=== PATIENT | female | born 1995 | race Caucasian/White ===

== ENCOUNTER 2022-05-16 10:16 | Outpatient (CLI) | payer OTHER, SELFPAY ==
[2022-05-17 12:21] LABS: Strep B DNA Probe POSITIVE (Negative)
== END 2022-05-16 10:17 | disposition home or self-care (01) ==
LOC: NFLDREF 10:16
PROVIDERS: PCP Physician Assistant Medical; Visit Provider Advanced Practice Midwife
DX: Z34.90 Encounter for supervision of normal pregnancy, unspecified, unspecified trimester (principal)
CPT/HCPCS: 87081; 87653

== ENCOUNTER 2022-06-15 07:52 | Inpatient (IN) | payer OTHER, SELFPAY ==
[2022-06-15] VITALS (34 sets, daily range): BP systolic 98–130; BP diastolic 52–75; PULSE 62–96; RESP 16; TEMP 36.7–36.9; O2SAT 92–100; BMI 29.8
[2022-06-15] MEDS: miSOPROStoL 25 MCG/0.25 TABLET VAGINAL ×2 (07:54→12:15)
--- NOTE | 2022-06-15 07:57 | W.PM.LDBA ---
Subjective History of Present Illness Date Seen: 06/15/22 Narrative: Patient is being admitted to Labor and Delivery for IOL post dates. She is a 27 year old at 40.6 weeks gestation. Her full history and physical was dictated by Gayle Valadez CNM on 05/24/2022. Please see this for details. On admission she is abdulkadir but denies feeling them. Her cervical exam is unchanged from the clinic over the past few weeks. Reviewed IOL options including Cytotec vaginally or buccally, cook catheter and Pitocin. Risks and benefits of each reviewed. She choose vaginal Cytotec. First dose placed by me. She is ok with subsequent doses being placed by staff educator. She plans an epidural for pain at some time. Denies questions at this time. O POSITIVE+ ? GBS positive 1.? Stopped Adderall w/ , but may need to go back on. back on Lexapro 2.? Hx of macrosomic infant, 9 lbs, no complications 3.? Risk of depression.? Did not have w/ first baby, mom in the last year.? Consider SSRI if needed. OB - H&P: Exam Constitutional: Constitutional: no acute distress Routine HEENT Exam: Head: Present normal inspection Eye: Present normal appearance ENT: Present normal exam Routine Neck Exam: Neck: Present full ROM Routine Respiratory Exam: Respiratory: Present CTA bilaterally Routine Cardiovascular Exam: Cardiovascular: RRR Routine Exam: Perineum Description: Normal Detailed Labor and Delivery Exam: Patient Gravid: yes Dilation (cm): 1 Effacement (%): 30 Cervix position: mid Consistency: medium Contraction frequency (min): 7 Tachysystole: No Contraction intensity: Mild (pt denies feeling contractions) Fetus (Single): Station: -3 Heart Rate Baseline: 135 Monitor Accelerations: Present Monitor Decelerations: None Forensic Science Technician Variability: Moderate (11-25) (6-25) Routine Extremities Exam: Extremities: Present full ROM Routine Back/Spine/Pelvis Exam: Back/Spine: full ROM Routine Neurological Exam: Present alert and oriented X3 Routine Psychiatric Exam: Present normal affect and normal thought process OB - Problem Based A/P Additional Plan (1) Supervision of Other Normal : Status: Acute Plan ASSESSMENT:? at 40.6 weeks gestation? GBS positive? Uncomplicated ? Postdates IOL? ?? PLAN:? 1. Antibiotic prophylaxis treatment per protocol? 2. Reviewed risks and benefits of IOL with Pitocin vs Cytotec (vaginal or buccal). Pt prefers vaginal Cytotec. Pitocin to follow if needed.? 3. Candidate for analgesia of choice. Planning epidural.? 4. Anticipate ? 5. IV placement per protocol as needed 6. External monitoring per unit policy? Delivery/Labor/Induction Plan Plan: induction Induction method: per misoprostol protocol
[2022-06-15 09:43] LABS: SARS PCR* Negative SARS-CoV-2 (Negative)
--- NOTE | 2022-06-15 17:14 | PM.OBPNL ---
Pain Control Date Seen: 06/15/22 Pain control: tolerating well Comments: Subjective: Tiffanie is coping WELL with labor pain/contractions. She is currently being supported by her and the nursing staff. She is getting more uncomfortable rating the contractions a 4/10 but states that they are still tolerable. Talking through contractions. Understands the current plan of care. Questions answered to her satisfaction. Reports concerns regarding: none. She would like to continue with position changes and distraction for comfort and pain management.?? ? Objective:? Vital signs stable, see nurse documentation? Abdomen: palpates mild at fundus with contractions? FHR: EEG INTERMITTENT monitoring as ordered, baseline 125 BPM with moderate variability, 15x15 accelerations present in the past hour, decelerations absent.? TOCO/observation: every 1.5-4 minutes? SVE: %/-3? Membranes: intact? ? Assessment:?? 27 at 40.6 gestation?? Patient is coping WELL with challenges of labor.?? Labor type: Induced, Early labor? Category 1 FHR pattern.?? Labor complicated by:none? ? Plan:?? Continue with routine intrapartum cares as ordered.?? Will hold the next dose of Cytotec due to increased number of contractions. Will reevaluate for another possible dose in 1-2 hours. Patient encouraged to include movement and position changes to promote physiologic labor and .?? LABOR ANALGESIA or nonpharmacologic comfort measures per patient preference. Patient does not plan for waterbirth? Anticipate vaginal .?? Contractions Monitor mode: External Contraction frequency: 3 (Q 1.5-4 min) Contraction pattern: Regular Contraction intensity: Mild (pt feeling contractions as tightening across her abdomen) Pelvic Exam Dilation (cm): 1 Effacement (%): 70 Station: -3 Fetus (Single) status: Category l Assessment and Plan Assessment: induction ongoing
[2022-06-15 20:55] LABS: Basophils Percent Auto 0.2 % (0.0-3.0); Eosinophils Percent Auto 0.7 % (0.0-7.0); Hematocrit 39.4 % (33.0-51.0); Hemoglobin* 13.9 gm/dL (12.0-16.0); Immature Granulocytes Abs Auto 0.03 K/uL (0.00-0.30); Lymphocytes Percent Auto 17.8 % (20-44); Mean Corpuscular HGB Conc 35 gm/dL (32-36); Mean Corpuscular Hemoglobin 31 pg (26-34); Mean Corpuscular Volume 88 fL (80-100); Monocytes Percent Auto 8.4 % (0.0-11.0); Neutrophils Percent Auto 72.7 % (42.0-72.0); Platelet Count* 227 K/uL (140-440); RDW Coefficient of Variation % 12.7 % (11.5-15.5); Red Blood Count 4.49 m/uL (4.00-5.20); White Blood Count* 12.12 K/uL (4.50-11.00)
[2022-06-15 20:57] LABS: Slide Review Reflex No
[2022-06-15] MEDS: LACTATED RINGERS 1000 ML 1,000 ML 1200 ML IV ×2 (21:30→22:22)
[2022-06-15] MEDS: AMPICILLIN 2 GM in 0.9 % SODIUM CHLORIDE Mini-bag 100 ML IVPB (21:31)
[2022-06-15] MEDS: fentaNYL 100 MCG/2 ML inj IVP (21:50)
[2022-06-15] MEDS: ROPIVACAINE 0.2% 100 ml 100 ML 12 MG EPIDURAL (21:57)
[2022-06-15] MEDS: LIDOCAINE 2% (PF) 5 ML VIAL EPIDURAL (21:58)
[2022-06-15] MEDS: ROPIVACAINE 0.2 % PF 10 ML INJ 20 MG EPIDURAL (22:09)
--- NOTE | 2022-06-15 22:18 | PM.ANBPRC ---
PFSH PFSH Surgical History (Updated 04/23/22 @ 10:45 by Jin Gastelum) History of arthroscopy of both knees History of lumpectomy Family History (Updated 04/10/22 @ 14:05 by Karen Kay) Maternal Grandfather Hyperlipidemia High blood pressure Maternal Grandmother Hyperlipidemia High blood pressure Paternal Grandfather Hyperlipidemia Paternal Grandmother Hyperlipidemia Mother High blood pressure Father Thyroid disease Other Prostate cancer Social History (Updated 04/10/22 @ 14:04 by Karen Kay) Narrative: Does not use illicit drugs Non-smoker Rarely consumes alcohol Smoking Status: Never smoker Meds Home Medications and Allergies Home Medications Medication Instructions Recorded Confirmed Type docosahexaenoic acid 200 mg mg PO 04/24/22 06/14/22 History capsule ( DHA) Allergies Allergy/AdvReac Type Severity Reaction Status Date / Time No Known Allergies Allergy Verified 06/15/22 07:29 Results Labs Labs: Laboratory Results - last 24 hr 06/15/22 06/15/22 06/15/22 08:18 20:41 20:41 WBC 12.12 H RBC 4.49 Hgb 13.9 Hct 39.4 MCV 88 MCH 31 MCHC 35 RDW Coeff of Rayo 12.7 Plt Count 227 Neut % (Auto) 72.7 H Lymph % (Auto) 17.8 L [place] % (Auto) 8.4 Eos % (Auto) 0.7 Baso % (Auto) 0.2 Neut # (Auto) 8.80 H Lymph # (Auto) 2.20 [place] # (Auto) 1.00 H Eos # (Auto) 0.10 Baso # (Auto) 0.00 Abs Immat Gran (auto) 0.03 SARS-CoV-2 (PCR) Negative SARS-CoV-2 Blood Type O Positive Antibody Screen NEGATIVE Vital Signs Vital Signs: Last Vital Signs Temp 98.1 F 06/15/22 19:30 Pulse 77 06/15/22 21:57 Resp 16 06/15/22 16:32 BP 128/75 06/15/22 21:57 Pulse Ox 97 06/15/22 22:09 Weight: 94.347 kg Height: 177.8 cm Anesthesia Procedures Epidural Insertion Patient Location: OB Start Time: 21:30 Stop Time: 22:19 Start Date: 06/15/22 Stop Date: 06/15/22 Reason for Block: procedure for pain Patient Position: sitting Performed By: Malcolm Bauer Preanesthetic Checklist: IV checked, risks and benefits discussed, surgical consent, monitors and equipment checked, pre-op evaluation, timeout performed and anesthesia consent Prep: chlorhexidine gluconate Monitoring: blood pressure monitoring, continuous pulse oximetry and heart rate Approach: midline Vertebral Space: lumbar (1-5) Epidural Technique: TUTU air Needle Type: Tuohy needle Injection Technique: continuous catheter Needle gauge: 17 Needle Length (cm): 10 cm Needle Insertion Depth (cm): 7 Catheter Gauge: 19 Catheter Type: multi-orifice Catheter at skin depth (cm): 13 Test Dose Result: negative and lidocaine 1.5% with epinephrine 1 to 200,000
[2022-06-15] MEDS: PHENYLEPHRINE 100 MCG/ML SYRINGE IVP ×2 (22:30→22:35)
--- NOTE | 2022-06-15 23:13 | PM.OBPNL ---
Pain Control Date Seen: 06/15/22 Pain control: tolerating well and epidural Comments: RN called me to come evaluate the pt. She received a epidural and was having recurrent variable and late decelerations. The staff changed positions multiple times. When i arrived the tracing had improved some. She was still having occasional variable and late decelerations but they were less frequent. She had good variability and accels. Before my arrival after the epidural her SVE by the RN was 6cm. She is now positioned on her left side and is comfortable. She is starting to feel some pressure with some of the contractions. Will continue to allow her to labor and anticipate a . Contractions Monitor mode: External Contraction frequency: 4 (Q 1.5-5 min) Contraction pattern: Regular Contraction intensity: Strong/Firm (just starting to feel occasional pressure with some contractions) Pelvic Exam Dilation (cm): 7 Effacement (%): 80 Station: -1 Fetus (Single) status: Category ll Assessment and Plan Assessment: active labor Plan: continue present management
[2022-06-16] VITALS (24 sets, daily range): BP systolic 103–134; BP diastolic 57–88; PULSE 60–111; RESP 16; TEMP 36.6–37.3; O2SAT 94–96
[2022-06-16] MEDS: LACTATED RINGERS 1000 ML 1,000 ML 925 ML IV (00:15)
[2022-06-16] MEDS: OXYTOCIN 30 unit/500 ML in NS 30 UNIT/500 ML BAG 300 UNIT IVPB (01:27)
--- NOTE | 2022-06-16 02:03 | P.OBPRC_ITS ---
Procedure Delivery date: 06/16/22 Procedure Done: Global Procedure Details: Patient is a 27 year-old G3 now P2 admitted on 06/15/22 at 40 Weeks, 6 Days gestation for post term IOL. Her induction was started at 40.6 weeks on a Saturday because there are not scheduled inductions on the weekend and Saturday is a holiday.? Cervical exam on admission was 1 cm/30 % effaced/-3 station with membranes intact in vertex presentation.? Contractions were every 5-7 minutes.? heart rate demonstrated baseline 135 bpm with moderate variability, + accelerations, - decelerations; a category 1 tracing.? SROM occurred at 2316 with clear fluid. There was terminal meconium at delivery.? ?? Labor Analgesia:? Epidural? ?? Pitocin:? Yes after delivery of the only? ?? Labor onset:? 2114? ?? Complete:? 0025? ?? Pushing:? 0040? ?? heart tones during second stage were category 2. Baseline was 130 with accels. There were veriable decels with an occasional late decel noted. Good return to baseline ad moderate variability.? ?? At 0126 a viable female delivered in vertex LEONEL presentation over intact perineum via spontaneous vaginal delivery.? Infant was placed on maternal abdomen.? Cord was clamped and cut after a >5 minute delay.? Nose and mouth were bulb suctioned.? Infant weight pending.? 8 at 1 minute and 9 at 5 minutes.? Shoulder dystocia: no.? Nuchal cord: no.Body card drapped over the shoulders but not around the neck. [place] delivery and cord was reduced af ter delivery.? ?? Placenta delivered spontaneously and complete at 0150 with a 3 vessel cord.? ?? Mother and infant were stable after delivery.? ?? Lacerations:? 1st degree perineal that was not repaired.? ?? Blood loss: 150 mL.? Blood loss measurement type: QBL? Sponge and needles counts are correct.? Events: Labor Induction and Covid Infection in Intrapartal Events: Labor Induction Induction method: per misoprostol protocol Delivery monitor: external FHT and external uterine Route of delivery: Episiotomy description: None Laceration description: Perineal - 1st Degree (no repair) Estimated blood loss (mL): 150 (QBL) Anesthesia type: Epidural Disposition: floor [place] Infant Gender: Female presentation: vertex Placental Delivery Description: Spontaneous Cord Description: 3 Vessels and Around Body x1 (cord was over the shoulders but not around the neck. delivered through the cord. ) OB Vag Delivery Procedures Additional Procedures ECV: No Cook Catheter Insertion: No NST: Yes D&C: No Laceration Repair: No Tubal Ligation : No Other: No
[2022-06-16] MEDS: IBUPROFEN 600 MG TABLET PO ×3 (03:04→23:06)
[2022-06-16] MEDS: ACETAMINOPHEN 500 MG TABLET 1000 MG PO ×2 (07:58→16:15)
[2022-06-16] MEDS: DOCUSATE SODIUM 100 MG CAPSULE PO (07:59)
[2022-06-17 01:12] VITALS: BP 103/70; PULSE 60; RESP 16; TEMP 36.6
[2022-06-17 07:26] VITALS: TEMP 36.7
[2022-06-17] MEDS: ACETAMINOPHEN 500 MG TABLET 1000 MG PO (07:26)
[2022-06-17] MEDS: DOCUSATE SODIUM 100 MG CAPSULE PO (07:29)
--- NOTE | 2022-06-17 07:31 | P.DS_ITS ---
DS: Providers Provider Date Seen: 06/17/22 Date of admission: 06/15/22 07:52 Primary care physician: Kristen Ferrell PA-C Admitting Clinician: Elsa Roman CNM Attending Physician on discharge: Irina Roman CNM Date of Discharge: 06/17/22 DS: Diagnosis Discharge Diagnosis (1) care and examination immediately after delivery: Status: Acute (2) Status post normal delivery: Status: Acute (3) Lactating mother: Status: Acute Exam Const: Vital Signs, click to edit/add: Vital Signs - 24 hr 06/16/22 07:51 06/16/22 07:58 06/16/22 11:46 Temperature 98.2 F 98.1 F 98.0 F Pulse Rate [Left B lood Pressure Cuff ] 76 78 Respiratory Rate 16 16 Blood Pressure [Le ft Arm] 104/69 116/77 Pulse Oximetry 95 94 Oxygen Delivery Me thod Room Air Room Air 06/16/22 11:53 06/16/22 16:05 06/16/22 16:15 Temperature 98.1 F 98.1 F 98.1 F Pulse Rate [Left B lood Pressure Cuff ] 60 Respiratory Rate 16 Blood Pressure [Le ft Arm] 114/72 Pulse Oximetry 96 Oxygen Delivery Me thod Room Air 06/16/22 08:55 06/16/22 12:50 06/16/22 21:48 Temperature 98.1 F 98.0 F 97.8 F Pulse Rate [Left B lood Pressure Cuff ] 60 Respiratory Rate 16 Blood Pressure [Le ft Arm] 103/67 Pulse Oximetry Oxygen Delivery Me thod Room Air 06/17/22 01:12 06/17/22 07:26 Temperature 97.8 F 98.1 F Pulse Rate [Left B lood Pressure Cuff ] 60 Respiratory Rate 16 Blood Pressure [Le ft Arm] 103/70 Pulse Oximetry Oxygen Delivery Me thod Room Air Documenting provider has reviewed patient's vital signs: yes Common normals: no apparent distress, oriented x3, no limitations, healthy appearing, alert and well nourished HENMT: Common normals: normocephalic Head and scalp: normocephalic Eye: Common normals: PERRL and EOMs intact bilaterally Pupil: PERRL Neck & C-Spine: Common normals: full ROM and supple Chest: Common normals: inspection of chest normal Other: Breast exam: deferred Resp: Common normals: normal respiratory effort and clear to auscultation bilaterally Auscultation: clear to auscultation bilaterally Cardio: Common normals: regular rate and regular rhythm Rate: regular rate Rhythm: regular rhythm GI: Common normals: Normal to inspection, nondistended, normoactive bowel sounds present, soft to palpation and non-tender Palpation: soft : OB/external & speculum: Yes deferred Uterus: U/2 and firm Lochia: small Back & Pelvis: Common normals: thoracic and lumbar spine normal to inspection and thoraco-lumbar ROM normal Extremity: Common normals: normal to inspection and full ROM Neuro: Common normals: oriented x3, moves all extremities and gait normal Sensorium/orientation: alert Psych: Common normals: mental status grossly normal, thought process normal, affect normal, speech normal and activity/motor behavior normal Speech: normal speech Thought process: normal thought process Skin: Common normals: no rashes or lesions noted General skin exam: no rashes or lesions noted OB - DS: Summary Hospital Course Hospital Course: The patient is a 27 year old G 3 P 2 at 41 0/7 weeks gestation that was admitted to the Center on 06/15/22 for IOL for post-dates. She had an uncomplicated vaginal delivery. She delivered a viable female infant [place]. She is and reports it is going well. the patient has done well. Peripartum Data Infant delivery method: Vaginal Laceration description: None complications: none [place] Gender: Female Discharge Plan: Home Status at Discharge Functional status at discharge: independent ambulation Overall status at discharge: patient is progressing back to baseline Time Spent with Patient Time attestation: Total time spent providing and/or coordinating discharge services: Discharge Plan Discharge Disposition: Home, Self-Care Date of Admission: 06/15/22 07:52 Attending Provider on Discharge: Irina Roman Primary Care Provider: Kristen Ferrell Condition: Stable Anticipated Discharge Date/Time: 06/17/22 12:00 Discharge Medications: New acetaminophen 500 mg Tablet 1,000 mg PO Q6H PRNQty: 0 0RF docusate sodium 100 mg Capsule 100 mg PO DAILY Qty: 90 0RF ibuprofen 600 mg Tablet 600 mg PO Q6H PRNQty: 60 0RF Continued DHA 200 mg capsule PO escitalopram oxalate 5 mg tablet 5 mg PO QDAY Qty: 180 0RF Rx Instructions: take 1 tablet (5mg) by mouth daily for 1-2 weeks then increase to 2 tablets (10mg) daily Discharge Orders: Discharge Order (Routine); Ordered 06/17/22 Ordered By: Irina Roman Patient Education: OB Vaginal/Breast Feeding Activity Restrictions/Additional Instructions: Discharge instructions were reviewed with the patient including signs and symptoms of infection and home going medications Nothing vaginally for 6 weeks: no tampons or intercourse Do not drive while taking narcotic pain medication(s) Off Work or School for 6 weeks Symptoms to report to doctor: * Bleeding that saturates more than one pad per hour * Passing clots larger than the size of a golf ball * Pain not relieved by prescribed medication * Fever above 100.4 degrees Fahrenheit * A foul vaginal odor * Difficulty in emotions, mood, and functions * Thoughts of hurting yourself and/or * Painful, reddened area in your breast * Any drainage, redness, or tenderness in your IV/epidural site * Severe headache that doesn't improve after taking medications * Changes in vision, including temporary loss of vision, blurred vision, and/or light sensitivity * Upper abdominal pain (usually under ribs on the right side) * Decrease in urination or painful, frequent urinating * Chest pain * Shortness of breath * Tenderness or pain with redness and/swelling in the calf(s) of your leg 2-week visit: discuss infant feeding concerns, review control options and screen for anxiety/depression. 6-week visit for an annual exam. consultation services are available to all mothers and babies for the first year after delivery.? To make an appointment, please call [phone]. Activity Level: Activity as Tolerated Discharge Diet: Regular Follow Up Appointments: [facility] [Provider Group] (2 weeks and 6 weeks) Forms: Information Assuranceth Info Instructions
[2022-06-17 08:16] VITALS: BP 100/62; PULSE 73; RESP 16; TEMP 36.7; O2SAT 95
[2022-06-17 09:19] VITALS: TEMP 36.7
[2022-06-17 09:42] VITALS: TEMP 36.7
[2022-06-17] MEDS: IBUPROFEN 600 MG TABLET PO (09:42)
== END 2022-06-17 12:15 | disposition home or self-care (01) | DRG 807 ==
PROVIDERS: Admitting Provider Advanced Practice Midwife; PCP Physician Assistant Medical; Visit Provider Advanced Practice Midwife
DX: O48.0 Post-term pregnancy (principal); Z37.0 Single live birth; O99.824 Streptococcus B carrier state complicating childbirth; O70.0 First degree perineal laceration during delivery; Z86.16 Personal history of COVID-19; Z3A.41 41 weeks gestation of pregnancy
CPT/HCPCS: 1967; 36415; 59200; 85025; 86850; 86900; 86901; 87635; 88307; A9270; J0290; J2370; J2795; J3010; J7120

== ENCOUNTER 2022-09-25 09:00 | Outpatient (RCR) | payer OTHER, SELFPAY | END 2022-12-07 08:47 | disposition home or self-care (01) | PROVIDERS: PCP Physician Assistant Medical; Visit Provider Advanced Practice Midwife | DX: N81.89 Other female genital prolapse (principal); Z51.89 Encounter for other specified aftercare | CPT/HCPCS: 97110; 97112; 97140; 97161; 97535 ==